=== PATIENT | male | born 1975 | race Caucasian/White ===

== ENCOUNTER 2020-12-11 10:29 | Emergency (ER) | payer OTHER, SELFPAY ==
[2020-12-11 10:30] VITALS: BP 153/75; PULSE 100; RESP 16; TEMP 38.5; O2SAT 97; BMI 28.3
--- NOTE | 2020-12-11 10:58 | RAD_ITS ---
STUDY: X-RAY CHEST REASON FOR EXAM: Male, 45 years old. fever, cough TECHNIQUE: Single AP portable view of the chest. COMPARISON: None. FINDINGS: The lungs are clear and expanded. There is no demonstrated pleural abnormality. Normal size heart. Normal mediastinum and lele. Normal visualized pulmonary arteries. Normal visualized aortic arch and descending thoracic aorta. Normal visualized thoracic spine. Healed fracture the right clavicle. There is no demonstrated abnormality of the visualized soft tissue structures of the upper abdomen. RAD/Chest 1 View (Portable) IMPRESSION: Normal x-ray examination of the chest. Electronically Signed: Neil Ferrari MD at 11:51 EDT Tel , Service support ,
[2020-12-11 11:08] VITALS: BP 134/73; PULSE 98; RESP 20; TEMP 38.5; O2SAT 94
[2020-12-11] MEDS: Ondansetron 4 MG/2 ML Vial IV (11:12)
[2020-12-11] MEDS: Ketorolac 30 MG/ML Syringe IV (11:12)
[2020-12-11] MEDS: 0.9% Normal Saline 1,000 ML 1000 ML IV ×2 (11:12→12:55)
[2020-12-11 11:17] LABS: Absolute Lymphocyte Count 0.32 X10^3/uL (0.83-4.51); Absolute Neutrophil Count 5.3 X10^3/uL (2.0-7.7); Hematocrit 40.9 % (40-54); Hemoglobin 13.5 g/dL (13.0-16.5); Lymphocyte # 0.32 X10^3/ul (0.83-4.51); Lymphocyte % 5.3 % (19-41); Mean Corpuscular Hgb 28.6 pg (27.0-32.0); Mean Corpuscular Volume 86.7 fL (80-94); Mean Platelet Vol. 11.5 fl (6.2-12.0); Monocyte% 6.7 % (0-10); NRBC Flagged by Analyzer 0 % (0-5); Neutrophil # 5.27 X10^3/uL (2.7-7.7); Neutrophil % 87.7 % (47-70); POSITIVE DIFFERENTIAL YES; Platelet Count 183 K/mm3 (150-450); RBC Distribution Width CV 12.9 % (11.6-14.6); RBC Distribution Width SD 40.8 fl (35.1-43.9); Red Blood Count 4.72 M/mm3 (4.6-6.2)
[2020-12-11 11:18] LABS: Differential Indicated SCAN CRITERIA MET
[2020-12-11 11:28] LABS: Anion Gap 8 (5-15); BUN 16 mg/dL (7-18); BUN/Creat Ratio 16.5 RATIO (10-20); Calcium,Total 8.4 mg/dL (8.5-10.1); Chloride 101 mmol/L (98-107); Creatinine, Serum 0.97 mg/dL (0.70-1.30); EST Glomerular Filtration Rate 89 mL/min (>60); Est Glom Filt Rate - Afr Amer 107 mL/min (>60); Estimated Creatinine Clearance 95.16 ml/min; Glucose 106 mg/dL (74-106); Potassium 4.5 mmol/L (3.5-5.1); Sodium Level 136 mmol/L (136-145)
[2020-12-11 11:51] LABS: Bacteria 0 SEEN /hpf (None Seen); Mucous, Urine 0 SEEN /hpf (<or=2+); Red Blood Cells-Urine 0 SEEN /hpf (0-5); White Blood Cells 0 SEEN /hpf (0-5)
[2020-12-11 12:00] VITALS: BP 127/85; PULSE 89; RESP 16; TEMP 37.4; O2SAT 96
[2020-12-11 12:12] LABS: Color, Urine Yellow (Yellow); Glucose, Dipstick Normal (Normal); Ketone-Dipstick 150 mg/dl (Negative); Leukocyte Esterase-Dipstick 25 /ul (Negative); Nitrite-Dipstick Negative (Negative); Occult Blood-Urine 10 /ul (Negative); Protein-Dipstick 100 mg/dl (Negative); Specific Gravity, Urine 1.015 (1.002-1.030); Urine Bilirubin Dipstick Negative (Negative); Urine Clarity Clear (Clear); Urine Urobilinogen Normal (Normal)
[2020-12-11 12:17] LABS: Squamous Epithelial Cells - UA 0-5 SEEN /hpf (0-5)
[2020-12-11] MEDS: Acetaminophen 500 MG Tablet 1000 MG PO (13:06)
--- NOTE | 2020-12-11 13:57 | EX.ED.DYSGE1 ---
HPI History of Present Illness Chief Complaint: Fever Informant: patient Narrative Narrative: 45-year-old male presenting with fever. His symptoms started on Sunday. He was seen by his primary care physician's office on Sunday. At that time he was diagnosed with strep pharyngitis and started on penicillin. He states the body aches and fever have worsened. He denies cough. He has had mild diarrhea. Denies chest pain or shortness of breath. Denies other complaints. [facility] Medical History (Updated 12/11/20 @ 13:[address] Zuleima Gallo MD) Hypertension Home Medications oxycodone-acetaminophen 1 - 2 tab PO Q6H PRN PRN 04/02/15 [History Last Taken Unknown] lisinopril 20 mg PO DAILY 12/11/20 [History Last Taken Unknown] Allergy/AdvReac Type Severity Reaction Status Date / Time No Known Allergies Allergy Verified 12/11/20 11:00 Social History Smoking Status: Never smoker ROS ROS ED Constitutional Constitutional ED: Reports fever(s) Eyes Eyes: Denies change in vision ENT ENT ED: Reports rhinorrhea and sore throat Cardiovascular Cardiovascular: Denies chest pain or palpitations Respiratory/Chest Respiratory/Chest: Denies cough or dyspnea Gastrointestinal Gastrointestinal: Reports diarrhea; Denies abdominal pain, nausea or vomiting Genitourinary Genitourinary ED: Denies dysuria Musculoskeletal Musculoskeletal: Reports myalgias Integumentary Denies rash Neurologic Neurologic: Reports headache(s); Denies paresthesias or weakness Psychiatric Psychiatric: Denies suicidal thoughts EXAM Physical Exam Const Vital Signs: 12/11/20 10:30 12/11/20 11:00 12/11/20 11:08 Temperature 101.3 F H 101.3 F H Temperature Source Temporal Oral Pulse Rate 100 98 Respiratory Rate 16 20 H Respiratory Effort Short of Breath Respiratory Pattern Normal Blood Pressure 153/75 H 134/73 H Blood Pressure Mean 101 93 Pulse Ox 97 94 Oxygen Delivery Method Room Air Room Air 12/11/20 12:00 Temperature 99.3 F H Temperature Source Oral Pulse Rate 89 Respiratory Rate 16 Respiratory Effort Respiratory Pattern Blood Pressure 127/85 H Blood Pressure Mean 99 Pulse Ox 96 Oxygen Delivery Method Room Air Positive well nourished and well developed General Appearance ED: well developed HEENT Reports normocephalic and head/scalp atraumatic HEENT Narrative: Mild pharyngeal erythema with no exudate. Uvula midline. Eyes PERRL and EOMs intact bilaterally Neck supple Neck Narrative: No meningismus General: Negative for tenderness Chest Wall inspection of chest normal Resp normal respiratory effort and clear to auscultation bilaterally Cardio regular rate and regular rhythm GI non-tender and non-distended Palpation: soft; Negative for guarding or rebound tenderness present no CVA tenderness Extremity normal to inspection Neuro oriented x3 Sensorium / Orientation: alert Psych mental status grossly normal Skin no rashes or lesions noted MDM MDM MDM Narrative Medical decision making narrative: Patient was given IV fluids, Toradol, Zofran. His temperature went up to 101.3. He was given Tylenol with improvement of his temperature to 99.3. Labs were reviewed. Covid is positive. Chest x-ray read by myself and radiology shows no acute abnormality. Patient has partially treated strep pharyngitis. He was given Bicillin IM. Advised signs and symptoms for which to return to the ED. Advised to follow up with primary care physician. Lab Data Attestation: I reviewed the patient's lab results. Labs: Laboratory Results - last 24 hr 12/11/20 12/11/20 12/11/20 11:05 11:05 11:42 WBC 6.0 RBC 4.72 Hgb 13.5 Hct 40.9 MCV 86.7 MCH 28.6 MCHC 33.0 RDW Std Deviation 40.8 RDW Coeff of Sonny 12.9 Plt Count 183 MPV 11.5 Immature Gran % (Auto) 0.300 Neut % (Auto) 87.7 H Lymph % (Auto) 5.3 L Coos % (Auto) 6.7 Eos % (Auto) 0.0 Baso % (Auto) 0.0 Absolute Neuts (auto) 5.3 Absolute Lymphs (auto) 0.32 L Nucleated RBC % 0 Sodium 136 Potassium 4.5 Chloride 101 Carbon Dioxide 27.0 Anion Gap 8 BUN 16 Creatinine 0.97 Estim Creat Clear Calc 95.16 Est GFR (MDRD) Af Amer 107 Est GFR (MDRD) Non-Af 89 BUN/Creatinine Ratio 16.5 Glucose 106 Calcium 8.4 L Urine Color Yellow Urine Clarity Clear Urine pH 5.0 Ur Specific Charmco 1.015 Urine Protein 100 H Urine Glucose (UA) Normal Urine Ketones 150 A* Urine Occult Blood 10 H Urine Nitrite Negative Urine Bilirubin Negative Urine Urobilinogen Normal Ur Leukocyte Esterase 25 H Urine RBC 0 SEEN Urine WBC 0 SEEN Ur Squamous Epith Cells 0-5 SEEN Urine Bacteria 0 SEEN Urine Mucus 0 SEEN Radiography Chest X-Ray - ED: 1 View, Read by ED Physician and Read by Radiologist Discharge Plan Triage Chief Complaint: Fever ED Provider: Zuleima Gallo Dx/Rx/DC Orders Clinical Impression: COVID-19 Instructions: Coronavirus Disease 2019 (COVID-19): Overview Prescriptions: No Action oxycodone-acetaminophen 1 TABLET tablet 1 - 2 tab PO Q6H PRN PRN (Reason: Pain) RF: 0 lisinopril 20 mg tablet 20 mg PO DAILY RF: 0 Primary Care Provider: Gage Gardner Referrals: Gage Gardner MD [Primary Care Provider] - Disposition Disposition: Home, self care
[2020-12-11 14:04] VITALS: BP 146/79; PULSE 71; RESP 16; O2SAT 96
[2020-12-11] MEDS: Penicillin G Benzathine 1.2 MU/2 ML Syringe IM (14:10)
== END 2020-12-11 14:20 | disposition home or self-care (01) ==
PROVIDERS: Emergency Provider Emergency Medicine; PCP Orthopaedic Surgery
DX: U07.1 COVID-19 (principal); I10 Essential (primary) hypertension; Z79.899 Other long term (current) drug therapy
CPT/HCPCS: 71045; 80048; 81001; 85025; 87426; 96361; 96372; 96374; 96375; 99283; J7030; J2405

== ENCOUNTER 2020-12-14 08:08 | Emergency (ER) | payer OTHER, SELFPAY ==
[2020-12-14 08:10] VITALS: BP 140/78; PULSE 98; RESP 16; TEMP 37.2; O2SAT 99; BMI 27.3
--- NOTE | 2020-12-14 08:22 | EX.ED.DYSGE1 ---
HPI History of Present Illness Chief Complaint: Fever Narrative Narrative: Patient presenting for evaluation secondary to complications of coronavirus. Patient states that he has had symptoms for around 8 days. He reports that he has had persistent fevers at around 100.5. He has been taking Tylenol with intermittent relief has been unable to take ibuprofen because he typically vomits that up and now he is started having more frequent vomiting. He states that when his fever goes up he feels short of breath. He has still been coughing. He has generalized body aches. He also has diarrhea associated with this. Patient denies any underlying significant medical issues he does have a history of hypertension he takes lisinopril for that. Patient states that his family members are starting to become ill with this. He denies any chest pain. Review of systems otherwise negative. [facility] Medical History Hypertension Home Medications oxycodone-acetaminophen 1 - 2 tab PO Q6H PRN PRN 04/02/15 [History Last Taken Unknown] lisinopril 20 mg PO DAILY 12/11/20 [History Last Taken Unknown] ondansetron 4 mg PO Q8H PRN PRN #10 tab 12/14/20 [Rx Last Taken Unknown] Allergy/AdvReac Type Severity Reaction Status Date / Time No Known Allergies Allergy Verified 12/14/20 08:10 Social History Smoking Status: Never smoker [facility] ED Constitutional Constitutional ED: Reports chills and fever(s) ENT ENT ED: Denies rhinorrhea Cardiovascular Cardiovascular: Denies chest pain Respiratory/Chest Respiratory/Chest: Reports cough and dyspnea Gastrointestinal Gastrointestinal: Reports diarrhea, nausea and vomiting; Denies abdominal pain Genitourinary Genitourinary ED: Denies dysuria or hematuria Musculoskeletal Musculoskeletal: Reports myalgias; Denies back pain Integumentary Denies rash Neurologic Neurologic: Denies paresthesias or weakness Psychiatric Psychiatric: Denies depression Endocrine Endocrinology: Denies fatigue Allergic/Immunologic Allergic/Immunologic ED: Denies urticaria EXAM Physical Exam Const Vital Signs: 12/14/20 08:10 12/14/20 08:40 Temperature 99 F 99 F Temperature Source Temporal Temporal Pulse Rate 98 98 Respiratory Rate 16 16 Respiratory Effort Normal Non-Labored Respiratory Pattern Normal Blood Pressure 140/78 H 140/78 H Blood Pressure Mean 98 98 Pulse Ox 99 99 Oxygen Delivery Method Room Air Room Air Positive well nourished and well developed General Appearance ED: well developed and NAD HEENT Reports moist mucous membranes Negative for trauma Eyes EOMs intact bilaterally Neck no lymphadenopathy and supple Resp clear to auscultation bilaterally Resp Narrative: Mild tachypnea with no retractions or accessory muscle use Cardio regular rate, regular rhythm and no murmurs Rate: other Other Details: 2+ radial pulses bilaterally symmetric GI normal to inspection, nondistended, normoactive bowel sounds and non-tender Palpation: soft Extremity normal to inspection Neuro oriented x3 Sensorium / Orientation: alert Psych mental status grossly normal Skin no rashes or lesions noted MDM MDM MDM Narrative Medical decision making narrative: Patient presented secondary to complications of coronavirus. He was modestly tachypneic, but has normal oxygen saturation, no significant tachycardia, no chest pain I do not feel that work-up for pulmonary embolism is indicated. IV was established patient was given Toradol Zofran and a liter of fluid. CBC shows lymphocyte suppression consistent with the patient's viral infection, chemistry demonstrates no significant electrolyte derangement very mild elevation of the patient's creatinine BUN is still normal at 10. Repeat evaluation of the patient at 9 AM shows the patient to continue to be stable. I believe that this is the normal progression of the disease, he does not meet any sort of inpatient criteria at this time and also does not meet any criteria for monoclonal antibodies or any sort of specific treatment. He will be sent home with Zofran as he did develop nausea and vomiting. He was instructed to continue taking Tylenol and ibuprofen, hydrating, and resting. Patient will follow up with primary care as needed. Lab Data Labs: Laboratory Results - last 24 hr 12/14/20 12/14/20 08:35 08:35 WBC 6.5 RBC 4.90 Hgb 14.0 Hct 42.3 MCV 86.3 MCH 28.6 MCHC 33.1 RDW Std Deviation 39.8 RDW Coeff of Sonny 12.6 Plt Count 203 MPV 11.3 Immature Gran % (Auto) 0.600 Neut % (Auto) 79.8 H Lymph % (Auto) 10.2 L Navarro % (Auto) 9.2 Eos % (Auto) 0.0 Baso % (Auto) 0.2 Absolute Neuts (auto) 5.2 Absolute Lymphs (auto) 0.67 L Nucleated RBC % 0 Sodium 136 Potassium 4.4 Chloride 101 Carbon Dioxide 29.0 Anion Gap 6 BUN 10 Creatinine 1.04 Estim Creat Clear Calc 88.75 Est GFR (MDRD) Af Amer 99 Est GFR (MDRD) Non-Af 82 BUN/Creatinine Ratio 9.6 L Glucose 102 Calcium 8.6 Discharge Plan Triage Chief Complaint: Fever ED Provider: Juan R Gee Dx/Rx/DC Orders Clinical Impression: COVID-19 Instructions: Coronavirus Disease 2019 (COVID-19): Overview Prescriptions: New ondansetron 4 mg tablet,disintegrating 4 mg PO Q8H PRN PRN (Reason: Nausea) Qty: 10 RF: 0 No Action oxycodone-acetaminophen 1 TABLET tablet 1 - 2 tab PO Q6H PRN PRN (Reason: Pain) RF: 0 lisinopril 20 mg tablet 20 mg PO DAILY RF: 0 Primary Care Provider: Gage Gardner Referrals: Gage Gardner MD [Primary Care Provider] - Activity Restrictions/Additional Instructions: Follow-up with your primary care physician as needed Disposition Disposition: Home, self care
[2020-12-14] MEDS: Ondansetron 4 MG/2 ML Vial IV (08:32)
[2020-12-14] MEDS: Ketorolac 15 MG/ML Vial IV (08:32)
[2020-12-14] MEDS: 0.9% Normal Saline 1,000 ML 1000 ML IV (08:32)
[2020-12-14 08:40] VITALS: BP 140/78; PULSE 98; RESP 16; TEMP 37.2; O2SAT 99
[2020-12-14 08:41] LABS: Absolute Lymphocyte Count 0.67 X10^3/uL (0.83-4.51); Absolute Neutrophil Count 5.2 X10^3/uL (2.0-7.7); Basophil# 0.01 X10^3/uL; Basophil% 0.2 % (0-1); Hematocrit 42.3 % (40-54); Lymphocyte # 0.67 X10^3/ul (0.83-4.51); Lymphocyte % 10.2 % (19-41); Mean Corp Hgb Conc 33.1 g/dL (32-36); Mean Corpuscular Hgb 28.6 pg (27.0-32.0); Mean Corpuscular Volume 86.3 fL (80-94); Mean Platelet Vol. 11.3 fl (6.2-12.0); Monocyte% 9.2 % (0-10); NRBC Flagged by Analyzer 0 % (0-5); Neutrophil # 5.22 X10^3/uL (2.7-7.7); Neutrophil % 79.8 % (47-70); Platelet Count 203 K/mm3 (150-450); RBC Distribution Width CV 12.6 % (11.6-14.6); RBC Distribution Width SD 39.8 fl (35.1-43.9); White Blood Count 6.5 K/mm3 (4.4-11.0)
[2020-12-14 08:56] LABS: Anion Gap 6 (5-15); BUN 10 mg/dL (7-18); BUN/Creat Ratio 9.6 RATIO (10-20); Calcium,Total 8.6 mg/dL (8.5-10.1); Chloride 101 mmol/L (98-107); Creatinine, Serum 1.04 mg/dL (0.70-1.30); EST Glomerular Filtration Rate 82 mL/min (>60); Est Glom Filt Rate - Afr Amer 99 mL/min (>60); Estimated Creatinine Clearance 88.75 ml/min; Glucose 102 mg/dL (74-106); Potassium 4.4 mmol/L (3.5-5.1); Sodium Level 136 mmol/L (136-145)
[2020-12-14 09:16] VITALS: BP 142/89; PULSE 82; RESP 16; RESP 17; TEMP 37.2; O2SAT 95
== END 2020-12-14 09:17 | disposition home or self-care (01) ==
PROVIDERS: Emergency Provider Emergency Medicine; PCP Orthopaedic Surgery
DX: U07.1 COVID-19 (principal); I10 Essential (primary) hypertension; Z79.899 Other long term (current) drug therapy
CPT/HCPCS: 80048; 85025; 96361; 96374; 96375; 99284; J7030; A4216; J2405